=== PATIENT | female | born 1975 | race Caucasian/White ===

== ENCOUNTER 2016-08-31 21:47 | Observation (INO) | payer OTHER ==
--- NOTE | 2016-08-31 23:10 | PDOC ---
History of Present Illness - General Chief Complaint: Cold Symptoms Stated Complaint: FEVER, MIGRAINE, MALAISE Time Seen by Provider: 08/31/16 22:24 - History of Present Illness Initial Comments: This 41-year-old woman with a history of melanoma, s/p right lower extremity lymphadenectomy and chronic migraine headache presents with approximately one month history of headache, malaise for which she was seen in urgent care/ER settings. 2 days ago, she began to have chest discomfort, she was seen at [facility] ER. Laboratory evaluation and head CT/chest x-ray revealed no significant abnormality. She started on Levaquin for bronchitis. Patient states that today, she had onset of fever (MAXIMUM TEMPERATURE 103.9F) with persistent generalized headache/photophobia, body aches and malaise. The patient took her usual migraine medications at home without relief. Past History - Past Medical History Allergies/Adverse Reactions: Allergies Allergy/AdvReac Type Severity Reaction Status Date / Time oxycodone HCl [From Percocet] AdvReac Itching Verified 08/29/16 14:52 Home Medications: Ambulatory Orders Levofloxacin [Levaquin -] 500 mg PO DAILY #7 tablet 08/29/16 Ketorolac Tromethamine [Toradol] 10 mg PO PRN PRN 08/31/16 Naproxen Sodium [Aleve] 220 mg PO PRN PRN 08/31/16 Anemia: Yes Cancer: Yes (MELANOMA-RT INNER THIGH 04/14) Disorders: Yes (ENDOMETRIOSIS) Hypercholesterolemia: Yes Psychiatric Problems: Yes Suicide Attempt (Hx): No - Surgical History Abdominal Surgery: Yes - Immunization History Immunization Up to Date: Yes - Psycho/Social/Smoking Cessation Hx Anxiety: No Suicidal Ideation: No Smoking Status: Yes Smoking History: Current every day smoker Have you smoked in the past 12 months: Yes Number of Cigarettes Smoked Daily: 5 Information on smoking cessation initiated: Yes 'Breaking Loose' booklet given: 08/31/16 Hx Alcohol Use: No Drug/Substance Use Hx: No Substance Use Type: Alcohol Hx Substance Use Treatment: No Review of Systems - Review of Systems Able to Perform ROS?: Yes Comments:: 12 point review of systems is negative except for what is noted in the history of present illness *Physical Exam - Vital Signs Last Vital Signs Temp Pulse Resp BP Pulse Ox 100.5 F H 134 H 18 135/84 98 08/31/16 21:50 08/31/16 21:50 08/31/16 21:50 08/31/16 21:50 08/31/16 21:50 - Physical Exam Comments: Adult female, lying in dark room with a washcloth over her eyes, in mild distress secondary to headache Vital signs as noted HEAD: No contusions, abrasions or lacerations of the scalp; no facial ecchymosis , deformities or tenderness EYES: Pupils equal, round and reactive to light, extraocular movements intact, sclera anicteric, conjunctiva clear PHARYNX: No erythema, exudate or edema; mucous membranes moist NECK: Supple, nontender, no masses or bruits LUNGS: Clear to auscultation bilaterally CARDIAC: S1, S2 normal; no extra sounds, rubs or murmurs heard ABDOMEN:Normoactive bowel sounds, nontender, no masses, no organomegaly EXTREMITIES: Normal range of motion, no edema,deformity or tenderness NEUROLOGICAL: Cranial nerves II through XII grossly intact. Normal speech, normal gait.moving all 4 extremities equally, Sensation intact in all extremities. PSYCH: Normal mood, normal affect. SKIN: Warm, Dry, normal turgor, no rashes or lesions noted. ED Treatment Course - LABORATORY CBC & Chemistry Diagram: 09/01/16 00:44 09/01/16 00:44 Medical Decision Making - Medical Decision Making This 41-year-old woman with a history of migraine, presents with several week history of persistent headache with nausea, along with chest pain/cough for the last 2 days. Although she has been started on Levaquin(on third day of 10 day course), fever was reported at 103.9 at home. On arrival here, her oral temperatures 100.5. Exam shows supple neck without any evidence of meningismus; there are no focal neuro findings. Remainder of exam is normal. Laboratory evaluation sent including lactic acid. Patient given a liter of normal saline IV, Zofran 4mg IV and Toradol 30 mg IV given for analgesia Patient had some relief in her nausea but no relief in her headache after Toradol IV. Patient given sumatriptan 6 mg subcutaneously After sumatriptan SQ, patient states that the pain in the left side of her head is resolved but she still has pounding right-sided headache with nausea. 09/01/16 02:52 Case discussed with patient's PMD, Dr. Holt. He suggested the patient received solu Medrol 125 mg IV now but admission for intractable headache is warranted. He does not have admitting hospitalist currently. He requested that [facility] hospitalist service be contacted for observation admission. 09/01/16 03:26 Patient relates little relief after Solu-Medrol. Nausea persists. Patient will receive Reglan 10 mg IVPB. 09/01/16 03:45 [facility] hospitalist service contacted: At this point in time, the hospitalist service does not admit for Dr. Holt. Dr. Holt recontacted: He will admit patient. *DC/Admit/Observation/Transfer Diagnosis at time of Disposition: Intractable headache Qualifiers: Headache type: unspecified Headache chronicity pattern: chronic headache Qualified Code(s): R51 - Headache - Discharge Dispostion Condition at time of disposition: Stable Admit: Yes - Referrals Referrals: Jose J Holt MD [Primary Care Provider] -
[2016-08-31] MEDS ORDERED: ONDANSETRON 4 MG/2 ML VIAL IVPUSH ONE (23:19)
[2016-08-31] MEDS ORDERED: KETOROLAC TROMETHAMINE 30 MG/1 ML VIAL IVPUSH ONE (23:19)
[2016-08-31] MEDS ORDERED: SODIUM CHLORIDE 1,000 ML IV STA (23:19)
[2016-08-31] MEDS ORDERED: ONDANSETRON 4 MG/2 ML VIAL ONE (23:30)
[2016-08-31] MEDS ORDERED: KETOROLAC TROMETHAMINE 30 MG/1 ML VIAL ONE (23:30)
[2016-09-01] MEDS ORDERED: SUMATRIPTAN SUCCINATE 6 MG/0.5 ML VIAL SQ ONE (00:59)
[2016-09-01] MEDS ORDERED: SUMATRIPTAN SUCCINATE 6 MG/0.5 ML VIAL ONE (01:00)
[2016-09-01 01:37] LABS: BASOPHIL 0.5 % (0-2.0); EOSINOPHIL 0.3 % (0-4.5); MCH 28.3 pg (25.7-33.7); MCHC 32.6 g/dl (32.0-36.0); MEAN CELL VOLUME 86.7 fl (80-96); MEAN PLT VOLUME 10.3 fl (7.5-11.1); NEUTROPHILS 83.6 % (42.8-82.8); PLATELET COUNT 229 K/MM3 (134-434); RDW 13.4 % (11.6-15.6)
[2016-09-01 02:08] LABS: BILIRUBIN,TOTAL 0.9 mg/dL (0.2-1.0); CALCIUM 8.7 mg/dL (8.5-10.1); CREATININE 1.1 mg/dL (0.55-1.02)
[2016-09-01] MEDS ORDERED: methylPREDNISolone NA SUCC 125 MG/2 ML VIAL IVPB ONE (02:52)
[2016-09-01] MEDS ORDERED: methylPREDNISolone NA SUCC 125 MG/2 ML VIAL ONE (02:53)
[2016-09-01] MEDS ORDERED: METOCLOPRAMIDE HCL INJECTION 10 MG/2 ML VIAL IVPB ONE (03:25)
[2016-09-01] MEDS ORDERED: SODIUM CHLORIDE NASAL SPRAY 44 ML BOTTLE NS PRN (03:51)
[2016-09-01] MEDS ORDERED: FLUTICASONE PROP 0.05% 16 GM NASAL SPRAY NS ONE (03:51)
[2016-09-01] MEDS ORDERED: ACETAMINOPHEN 325 MG TABLET (FP) PO PRN (03:51)
[2016-09-01] MEDS ORDERED: ONDANSETRON *ODT* 4 MG TABLET SL PRN (03:51)
[2016-09-01 05:13] VITALS: BMI 32.6
[2016-09-01] MEDS: methylPREDNISolone NA SUCC 125 MG/2 ML VIAL IVPB SCH ×2 (10:00→21:52)
[2016-09-01] MEDS ORDERED: LEVOFLOXACIN 500 MG IVPB 100 ML IVPB SCH (10:00)
[2016-09-01] MEDS ORDERED: PT OWN MED DRAWER 7, Y5N ONE ×3 (10:35→23:37)
[2016-09-01] MEDS: KETOROLAC TROMETHAMINE 30 MG/1 ML VIAL IVPUSH PRN ×2 (11:00→20:54)
--- NOTE | 2016-09-01 11:58 | HP ---
Admitting History and Physical - Admission History of Present Illness: 41-year-old woman with a history of melanoma, s/p right lower extremity lymphadenectomy and chronic migraine headache presents with approximately one month history of headache, malaise for which she was seen in urgent care/ER settings. 2 days ago, she began to have chest discomfort, she was seen at [facility] ER. Laboratory evaluation and head CT/chest x-ray revealed no significant abnormality. She started on Levaquin for bronchitis. Patient states that yesterday, she had onset of fever (MAXIMUM TEMPERATURE 103.9F) with persistent generalized headache/photophobia, body aches and malaise. The patient took her usual migraine medications at home without relief. 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 No: CVA, Seizure Cardiovascular: No: HTN Pulmonary: No: Asthma, Cancer Gastrointestinal: No: Cancer ...LMP: 09/25/12 ...: No Heme/Onc: Yes: Other (melanoma) - Smoking History Smoking history: Current every day smoker Have you smoked in the past 12 months: Yes Aproximately how many cigarettes per day: 10 - Alcohol/Substance Use Hx Alcohol Use: No Home Medications - Allergies Allergies/Adverse Reactions: Allergies Allergy/AdvReac Type Severity Reaction Status Date / Time oxycodone HCl [From Percocet] AdvReac Itching Verified 08/29/16 14:52 - Home Medications Home Medications: Ambulatory Orders Levofloxacin [Levaquin -] 500 mg PO DAILY #7 tablet 08/29/16 Ketorolac Tromethamine [Toradol] 10 mg PO PRN PRN 08/31/16 Naproxen Sodium [Aleve] 220 mg PO PRN PRN 08/31/16 Review of Systems - Review of Systems Constitutional: reports: Fever, Weakness Eyes: reports: Blurred Vision, Photophobia HENT: reports: Nasal Congestion Cardiovascular: denies: Chest Pain Respiratory: reports: Cough. denies: SOB, SOB on Exertion Gastrointestinal: denies: Abdominal Pain Genitourinary: reports: No Symptoms Neurological: reports: Headache Physical Examination Vital Signs: Vital Signs Temperature 98.6 F 09/01/16 06:14 Pulse Rate 82 09/01/16 06:14 Respiratory Rate 17 09/01/16 09:00 Blood Pressure 90/61 09/01/16 06:14 O2 Sat by Pulse Oximetry (%) 94 L 09/01/16 09:00 Neck: Yes: Supple Cardiovascular: Yes: Regular Rate and Rhythm Respiratory: Yes: Regular, CTA Bilaterally Gastrointestinal: Yes: Normal Bowel Sounds, Soft Neurological: Yes: Alert, Oriented Imaging - Results Chest X-ray: Report Reviewed Cat Scan: Report Reviewed Problem List - Problems (1) Intractable headache Assessment/Plan: CONTINUE WITH MEDS NEURO--CONSIDER F/U MRI--LAST MRI 11/2015 Code(s): R51 - HEADACHE Qualifiers: Headache type: unspecified Headache chronicity pattern: chronic headache Qualified Code(s): R51 - Headache (2) Migraine Assessment/Plan: ABOVE Code(s): G43.909 - MIGRAINE, UNSP, NOT INTRACTABLE, WITHOUT STATUS MIGRAINOSUS Qualifiers: Migraine type: unspecified Status migrainosus presence: without status migrainosus Intractability: not intractable Qualified Code(s): G43.909 - Migraine, unspecified, not intractable, without status migrainosus (3) Fever Assessment/Plan: UA/UC ID CONSULT ON LEVAQUIN Code(s): R50.9 - FEVER, UNSPECIFIED (4) Leukocytosis Assessment/Plan: ABOVE F/U CBCD Code(s): D72.829 - ELEVATED WHITE BLOOD CELL COUNT, UNSPECIFIED (5) H/O Malignant melanoma Code(s): Z85.820 - PERSONAL HISTORY OF MALIGNANT MELANOMA OF SKIN
[2016-09-01 17:20] LABS: URINE APPEARANCE Cloudy; URINE BILIRUBIN Negative (NEGATIVE); URINE BLOOD Negative (NEGATIVE); URINE GLUCOSE (UA) 1+ (NEGATIVE); URINE KETONE Negative (NEGATIVE); URINE NITRITE Negative (NEGATIVE); URINE UROBILINOGEN 1.0 E.U/dl (0.2-1.0)
[2016-09-01 17:24] LABS: URINE COLOR YELLOW; URINE LEUK ESTERASE TRACE (NEGATIVE); URINE PROTEIN 1+ (NEGATIVE)
[2016-09-01 17:41] LABS: URINE AMORPHOUS SEDIMENT 3+; URINE RBC 0-3 /hpf (0-3)
--- NOTE | 2016-09-01 20:16 | CONSULT ---
Consult Consult Specialty:: NEUROLOGY Reason for Consultation:: severe headache, fever, nausea, vomiting - History of Present Illness History of Present Illness: 41-year-old woman with a history of melanoma, s/p right lower extremity lymphadenectomy and chronic migraine headache presents for two days severe headaches ( worse than her usual migraine), cough, fever, nausea, vomiting. Her mother and her daughter had some flu, viral infection. Laboratory evaluation and head CT/chest x-ray revealed no significant abnormality. She was started on Levaquin for bronchitis. Patient states that yesterday, she had onset of fever 103.9F with persistent generalized headache/photophobia, body aches and malaise. The patient took her usual migraine medications at home without relief. Since Levaquin was started in the hospital and after reglan and Imitrex her headaches improved. - History Source History Provided By: Patient, Medical Record Limitations to Obtaining History: No Limitations - Past Medical History COMMUNITY LIAISON: Yes: Migraine. No: CVA, Seizure Cardio/Vascular: No: HTN Pulmonary: No: Asthma, Cancer Gastrointestinal: No: Cancer ...LMP: 09/25/12 ...: No - Alcohol/Substance Use Hx Alcohol Use: No - Smoking History Smoking history: Current every day smoker Have you smoked in the past 12 months: Yes Aproximately how many cigarettes per day: 10 Home Medications - Allergies Allergies/Adverse Reactions: Allergies Allergy/AdvReac Type Severity Reaction Status Date / Time oxycodone HCl [From Percocet] AdvReac Itching Verified 08/29/16 14:52 - Home Medications Home Medications: Ambulatory Orders Levofloxacin [Levaquin -] 500 mg PO DAILY #7 tablet 08/29/16 Ketorolac Tromethamine [Toradol] 10 mg PO PRN PRN 08/31/16 Naproxen Sodium [Aleve] 220 mg PO PRN PRN 08/31/16 Review of Systems - Review of Systems Constitutional: reports: Chills, Diaphoresis, Fever, Lethargy, Malaise, Weakness Eyes: reports: No Symptoms HENT: reports: Nasal Congestion Neck: reports: No Symptoms Cardiovascular: reports: No Symptoms, Chest Pain Respiratory: reports: Cough, Orthopnea, SOB Gastrointestinal: reports: Nausea, Vomiting Genitourinary: reports: No Symptoms Breasts: reports: No Symptoms Reported Musculoskeletal: reports: No Symptoms Neurological: reports: Headache, Pre-Existing Deficit Endocrine: reports: No Symptoms Hematology/Lymphatic: reports: No Symptoms Psychiatric: reports: No Symptoms Physical Exam-Neuro Vital Signs: Vital Signs Temperature 98.6 F 09/01/16 14:08 Pulse Rate 78 09/01/16 14:08 Respiratory Rate 20 09/01/16 14:08 Blood Pressure 105/61 09/01/16 14:08 O2 Sat by Pulse Oximetry (%) 94 L 09/01/16 09:00 Constitutional: Yes: Mild Distress Neck: Yes: Supple, Trachea Midline Cardiovascular: Yes: Regular Rate and Rhythm, S1, S2 Respiratory: Yes: Regular, CTA Bilaterally Gastrointestinal: Yes: Normal Bowel Sounds, Soft Musculoskeletal: Yes: WNL Edema: No Psychiatric: Yes: WNL, Alert, Oriented - Neuro Exam Level Of Consciousness: Yes: Alert, Oriented to Person, Oriented to Place, Oriented to Time Eyes: Yes: PERRLA Speech: WNL Dominant Hand: Right Cranial Nerves II-XII Intact: Yes Gag: Present DTR's: 1+ Left Bicep, 1+ Right Bicep, 1+ Left Tricep, 1+ Right Tricep, 1+ Left Brachioradialis, 1+ Right Brachioradialis, 1+ Left Achilles, 1+ Right Achilles Babinski: Absent Response to light touch: Normal Response to pain prick: Normal Response to temperature: Normal Response to vibration: Normal Coordination: Normal: Finger to Nose, Heel to Lo Motor Strength: 5/5: Left Arm, Right Arm, Left Leg, Right Leg Gait: Deferred Imaging - Results Cat Scan: Report Reviewed, Image Reviewed Problem List - Problems (1) Intractable headache Code(s): R51 - HEADACHE Qualifiers: Headache type: unspecified Headache chronicity pattern: chronic headache Qualified Code(s): R51 - Headache (2) Migraine with status migrainosus Code(s): G43.901 - MIGRAINE, UNSP, NOT INTRACTABLE, WITH STATUS MIGRAINOSUS (3) Nausea & vomiting Code(s): R11.2 - NAUSEA WITH VOMITING, UNSPECIFIED Assessment/Plan 41-year-old woman with a history of melanoma, s/p right lower extremity lymphadenectomy and chronic migraine headache presents for two days severe headaches ( worse than her usual migraine), cough, fever, nausea, vomiting. Her mother and her daughter had some flu, viral infection. Laboratory evaluation and head CT/chest x-ray revealed no significant abnormality. She was started on Levaquin for bronchitis. Patient states that yesterday, she had onset of fever 103.9F with persistent generalized headache/photophobia, body aches and malaise. Her headache is 4/10 pulsating, + photo+ phono, +nausea. The patient took her usual migraine medications at home without relief. Since Levaquin was started in the hospital and after reglan and Imitrex her headaches improved. Impression: status migrainous with viral bronchitis. Normal neurological exam, nonfocal Plan: - treat bronchitis per medical team - consider MRI brain and MRI C spine to rule out ICP- these can be done as outpatient - follow up in the neurology clinica as outpatient - magnesium oxide 400mg. po. daily. Thank you for this consult.
[2016-09-01] MEDS: ONDANSETRON 4 MG/2 ML VIAL IVPB PRN (20:55)
[2016-09-01] MEDS: SUMAtriptan SUCCINATE 25 MG TABLET PO PRN (23:49)
--- NOTE | 2016-09-02 07:03 | PN ---
Progress Note, Physician Chief Complaint: ID Unusual story of chronic migraine headaches with worsening headaches over August different then her typical migraines. Seen 3 times by medical doctors and treated for ear infection Augmentin cephalexin and most recently levofloxacin. Says while on levofloxacin had fever 103 at home chills headache and photophobia. No stiff neck coryza rash HIV risk factors, hobbies. No outdoor exposure and no one else at home ill (mom and daughter). Unemployed and has dog as pet. Past medical history includes LE melanoma resected and followed at [facility]. Here given steroids - Current Medication List Current Medications: Active Medications Acetaminophen (Tylenol -) 650 mg PO Q6H PRN PRN Reason: FEVER OR PAIN Levofloxacin (Levaquin 500 Mg Premixed Ivpb -) 100 mls @ 100 mls/hr IVPB DAILY CHERIE Last Admin: 09/01/16 09:00 Dose: 100 mls/hr Ketorolac Tromethamine (Toradol Injection -) 30 mg IVPUSH Q6H PRN PRN Reason: PAIN Stop: 09/06/16 03:50 Last Admin: 09/01/16 20:54 Dose: 30 mg Methylprednisolone Sodium Succinate (Solu-Medrol -) 80 mg IVPB BID CHERIE Last Admin: 09/01/16 21:52 Dose: 80 mg Ondansetron HCl (Zofran Injection) 8 mg IVPB Q8H PRN PRN Reason: NAUSEA Last Admin: 09/01/16 20:55 Dose: 8 mg Ondansetron HCl (Zofran Odt -) 4 mg SL Q6H PRN PRN Reason: NAUSEA AND/OR VOMITING Sodium Chloride ([place] Nasal [place] -) 2 spray NS TID PRN PRN Reason: NASAL CONGESTION Sumatriptan Succinate (Imitrex -) 25 mg PO BID PRN PRN Reason: HEADACHE Last Admin: 09/01/16 23:49 Dose: 25 mg - Objective Vital Signs: Vital Signs Temperature 98.0 F 09/02/16 06:00 Pulse Rate 80 09/02/16 06:00 Respiratory Rate 18 09/02/16 06:00 Blood Pressure 110/76 09/02/16 06:00 O2 Sat by Pulse Oximetry (%) 94 L 09/02/16 06:36 Constitutional: Yes: Well Nourished, No Distress, Calm Eyes: Yes: WNL, Conjunctiva Clear, EOM Intact HENT: Yes: WNL, Atraumatic, Normocephalic. No: Other (Ears look normal) Neck: Yes: WNL, Supple, Trachea Midline. No: Decreased ROM Cardiovascular: Yes: S1, S2. No: Murmur Respiratory: Yes: WNL, Regular, CTA Bilaterally Gastrointestinal: Yes: WNL, Normal Bowel Sounds, Soft. No: Splenomegaly, Tenderness, Tenderness, Epigastrium Edema: No Neurological: Yes: WNL, Alert, Oriented, Cran Nerves II-XII Intact Problem List - Problems (1) Intractable headache Code(s): R51 - HEADACHE Qualifiers: Headache type: unspecified Headache chronicity pattern: chronic headache Qualified Code(s): R51 - Headache (2) Acute viral syndrome Code(s): B34.9 - VIRAL INFECTION, UNSPECIFIED Assessment/Plan Laboratory Tests 08/21/13 08/29/16 09/01/16 08:30 17:45 00:44 WBC Hgb Plt Count ESR BUN 12 Creatinine 1.1 H AST 10 L ALT 26 Alkaline Phosphatase 80 C-Reactive Protein Total Protein 7.0 Albumin 4.0 Total Beta HCG < 1.0 Serum , Qual Negative Urine RBC 09/01/16 09/01/16 09/01/16 00:44 08:00 16:40 WBC 12.0 H D Hgb 13.9 Plt Count 229 ESR BUN Creatinine AST ALT Alkaline Phosphatase C-Reactive Protein 3.3 H Total Protein Albumin Total Beta HCG Serum , Qual Urine RBC 0-3 09/01/16 Unknown WBC Hgb Plt Count ESR 40 H BUN Creatinine AST ALT Alkaline Phosphatase C-Reactive Protein Total Protein Albumin Total Beta HCG Serum , Qual Urine RBC Assessment Possible viral syndrome superimposed on chronic migraines. Given recent fever 103 I would not give her steroids. As its unclear what if any infection she may have and she has not responded to 3 courses of antibiotics giving her levoflox now should be stopped. Nothing in her geographic history suggests Lyme or HIV. Her ears look fine at this time. Plan Stop Levofloxacin Stop Steroids Observe fever with cultures accordingly. Brain imaging as per neurology Consideration of LP if fevers persist. Jay PATE
[2016-09-02 07:51] LABS: MCH 29.7 pg (25.7-33.7); MCHC 33.7 g/dl (32.0-36.0); MEAN PLT VOLUME 10.3 fl (7.5-11.1); NEUTROPHILS 89.6 % (42.8-82.8); PLATELET COUNT 218 K/MM3 (134-434); RDW 13.5 % (11.6-15.6); WHITE BLOOD COUNT 15.8 K/mm3 (4.0-10.0)
[2016-09-02 07:52] LABS: BASOPHIL 0.1 % (0-2.0)
[2016-09-02] MEDS ORDERED: PT OWN MED DRAWER 7, Y5N ONE (11:38)
--- NOTE | 2016-09-02 12:39 | PN ---
Progress Note, Physician History of Present Illness: still with headaches--better than yesterday d/w dr trejo--monitor off abx - Current Medication List Current Medications: Active Medications Acetaminophen (Tylenol -) 650 mg PO Q6H PRN PRN Reason: FEVER OR PAIN Acetaminophen/Codeine Phosphate (Tylenol # 3 -) 1 tab PO Q8H PRN PRN Reason: FEVER OR PAIN Ketorolac Tromethamine (Toradol Injection -) 30 mg IVPUSH Q6H PRN PRN Reason: PAIN Stop: 09/06/16 03:50 Last Admin: 09/01/16 20:54 Dose: 30 mg Ondansetron HCl (Zofran Injection) 8 mg IVPB Q8H PRN PRN Reason: NAUSEA Last Admin: 09/01/16 20:55 Dose: 8 mg Ondansetron HCl (Zofran Odt -) 4 mg SL Q6H PRN PRN Reason: NAUSEA AND/OR VOMITING Sodium Chloride ([place] Nasal [place] -) 2 spray NS TID PRN PRN Reason: NASAL CONGESTION Sumatriptan Succinate (Imitrex -) 25 mg PO BID PRN PRN Reason: HEADACHE Last Admin: 09/01/16 23:49 Dose: 25 mg - Objective Vital Signs: Vital Signs Temperature 98.0 F 09/02/16 06:00 Pulse Rate 80 09/02/16 06:00 Respiratory Rate 18 09/02/16 08:01 Blood Pressure 110/76 09/02/16 06:00 O2 Sat by Pulse Oximetry (%) 94 L 09/02/16 08:01 Cardiovascular: Yes: Regular Rate and Rhythm Respiratory: Yes: Regular, CTA Bilaterally Gastrointestinal: Yes: Normal Bowel Sounds, Soft. No: Tenderness Labs: CBC, BMP 09/02/16 07:00 Problem List - Problems (1) Intractable headache Assessment/Plan: CONTINUE WITH MEDS NEURO--CONSIDER F/U MRI--LAST MRI 11/2015 TYLENOL #3 Code(s): R51 - HEADACHE Qualifiers: Headache type: unspecified Headache chronicity pattern: chronic headache Qualified Code(s): R51 - Headache (2) Migraine Assessment/Plan: ABOVE Code(s): G43.909 - MIGRAINE, UNSP, NOT INTRACTABLE, WITHOUT STATUS MIGRAINOSUS Qualifiers: Migraine type: unspecified Status migrainosus presence: without status migrainosus Intractability: not intractable Qualified Code(s): G43.909 - Migraine, unspecified, not intractable, without status migrainosus (3) Fever Assessment/Plan: RESOLVED UA/UC ID CONSULT NOTED 0BSERVE OFF ABX OFF LEVAQUIN Code(s): R50.9 - FEVER, UNSPECIFIED (4) Leukocytosis Assessment/Plan: HIGHER TODAY --PROBABLY STEROIDS ABOVE F/U CBCD Code(s): D72.829 - ELEVATED WHITE BLOOD CELL COUNT, UNSPECIFIED (5) H/O Malignant melanoma Code(s): Z85.820 - PERSONAL HISTORY OF MALIGNANT MELANOMA OF SKIN
[2016-09-02] MEDS: SUMAtriptan SUCCINATE 25 MG TABLET PO PRN (12:54)
[2016-09-02] MEDS: CELECOXIB 200 MG CAPSULE PO SCH (13:18)
[2016-09-02] MEDS: ACETAMINOPHEN WITH CODEINE 300MG/30MG TABLET PO PRN ×2 (13:19→20:30)
[2016-09-02] MEDS: ONDANSETRON 4 MG/2 ML VIAL IVPB PRN (20:30)
[2016-09-03] MEDS: CELECOXIB 200 MG CAPSULE PO SCH ×2 (07:06→10:08)
[2016-09-03 07:07] LABS: BASOPHIL 0.2 % (0-2.0); EOSINOPHIL 0.1 % (0-4.5); MCH 30.1 pg (25.7-33.7); MCHC 34.2 g/dl (32.0-36.0); MEAN PLT VOLUME 10.4 fl (7.5-11.1); PLATELET COUNT 213 K/MM3 (134-434); RDW 13.3 % (11.6-15.6); WHITE BLOOD COUNT 10.7 K/mm3 (4.0-10.0)
[2016-09-03] MEDS ORDERED: ALBUTEROL SO4 2.5/IPRATROPIUM 0.5 INH SOL 3 ML VIAL.NEB. NEB PRN (09:05)
--- NOTE | 2016-09-03 09:08 | PN ---
Progress Note, Physician Chief Complaint: AWAKE ALERT STILL FEELING WEAK AND ILL POOR PO INTAKE NO BM - Current Medication List Current Medications: Active Medications Acetaminophen (Tylenol -) 650 mg PO Q6H PRN PRN Reason: FEVER OR PAIN Acetaminophen/Codeine Phosphate (Tylenol # 3 -) 1 tab PO Q8H PRN PRN Reason: FEVER OR PAIN Last Admin: 09/02/16 20:30 Dose: 1 tab Albuterol/Ipratropium (Duoneb -) 1 amp NEB Q6H PRN PRN Reason: SHORTNESS OF BREATH Celecoxib (Celebrex -) 200 mg PO DAILY CHERIE Last Admin: 09/03/16 07:06 Dose: Not Given Dextrose/Sodium Chloride (D5-Ns -) 1,000 mls @ 100 mls/hr IV ASDIR CHERIE Ketorolac Tromethamine (Toradol Injection -) 30 mg IVPUSH Q6H PRN PRN Reason: PAIN Stop: 09/06/16 03:50 Last Admin: 09/01/16 20:54 Dose: 30 mg Ondansetron HCl (Zofran Injection) 8 mg IVPB Q8H PRN PRN Reason: NAUSEA Last Admin: 09/02/16 20:30 Dose: 8 mg Ondansetron HCl (Zofran Odt -) 4 mg SL Q6H PRN PRN Reason: NAUSEA AND/OR VOMITING Sodium Chloride ([place] Nasal [place] -) 2 spray NS TID PRN PRN Reason: NASAL CONGESTION Sumatriptan Succinate (Imitrex -) 25 mg PO BID PRN PRN Reason: HEADACHE Last Admin: 09/02/16 12:54 Dose: 25 mg - Objective Vital Signs: Vital Signs Temperature 97.6 F 09/03/16 06:42 Pulse Rate 68 09/03/16 06:42 Respiratory Rate 18 09/03/16 06:42 Blood Pressure 98/70 09/03/16 06:42 O2 Sat by Pulse Oximetry (%) 98 09/03/16 06:42 Constitutional: Yes: Mild Distress Eyes: Yes: WNL HENT: Yes: WNL Neck: Yes: WNL Cardiovascular: Yes: WNL Respiratory: Yes: WNL Gastrointestinal: Yes: WNL Genitourinary: Yes: WNL Musculoskeletal: Yes: Muscle Weakness Extremities: Yes: WNL Edema: No Peripheral Pulses WNL: Yes Integumentary: Yes: WNL Wound/Incision: Yes: Clean/Dry Neurological: Yes: WNL ...Motor Strength: WNL Psychiatric: Yes: WNL Labs: CBC, BMP 09/03/16 06:00 Problem List - Problems (1) Acute viral syndrome Code(s): B34.9 - VIRAL INFECTION, UNSPECIFIED (2) Fever Code(s): R50.9 - FEVER, UNSPECIFIED (3) H/O Malignant melanoma Code(s): Z85.820 - PERSONAL HISTORY OF MALIGNANT MELANOMA OF SKIN (4) Intractable headache Code(s): R51 - HEADACHE Qualifiers: Headache type: unspecified Headache chronicity pattern: chronic headache Qualified Code(s): R51 - Headache (5) Leukocytosis Code(s): D72.829 - ELEVATED WHITE BLOOD CELL COUNT, UNSPECIFIED (6) Migraine with status migrainosus Code(s): G43.901 - MIGRAINE, UNSP, NOT INTRACTABLE, WITH STATUS MIGRAINOSUS (7) Nausea & vomiting Code(s): R11.2 - NAUSEA WITH VOMITING, UNSPECIFIED (8) Abdominal pain Code(s): R10.9 - UNSPECIFIED ABDOMINAL PAIN Assessment/Plan MRI BRAIN PENDING IVF POOR INTAKE NUTRITIONAL SUPPLEMENT BANNA BAG X 1 B12 IM ID AND NEURO FOLLOW UP HISTORY OF MELANOMA, R/O NEOPLASM
[2016-09-03] MEDS ORDERED: DEXTROSE 5%-NORMAL SALINE 1,000 ML IV SCH (09:15)
--- NOTE | 2016-09-03 09:24 | PN ---
Progress Note, Physician History of Present Illness: No c/o fever/ chills Headache No c/o photophobia/ neck stiffness No earache Off antibiotics - Current Medication List Current Medications: Active Medications Acetaminophen (Tylenol -) 650 mg PO Q6H PRN PRN Reason: FEVER OR PAIN Acetaminophen/Codeine Phosphate (Tylenol # 3 -) 1 tab PO Q8H PRN PRN Reason: FEVER OR PAIN Last Admin: 09/02/16 20:30 Dose: 1 tab Albuterol/Ipratropium (Duoneb -) 1 amp NEB Q6H PRN PRN Reason: SHORTNESS OF BREATH Celecoxib (Celebrex -) 200 mg PO DAILY CHERIE Last Admin: 09/03/16 07:06 Dose: Not Given Cyanocobalamin (Vitamin B12 Injection -) 1,000 mcg IM DAILY [facility] Folic Acid 1 mg/ Thiamine HCl 100 mg/ Multivitamins/Minerals 10 ml/ Sodium Chloride 1,000 mls @ 125 mls/hr IVPB ONCE ONE Stop: 09/03/16 17:07 Ketorolac Tromethamine (Toradol Injection -) 30 mg IVPUSH Q6H PRN PRN Reason: PAIN Stop: 09/06/16 03:50 Last Admin: 09/01/16 20:54 Dose: 30 mg Ondansetron HCl (Zofran Injection) 8 mg IVPB Q8H PRN PRN Reason: NAUSEA Last Admin: 09/02/16 20:30 Dose: 8 mg Ondansetron HCl (Zofran Odt -) 4 mg SL Q6H PRN PRN Reason: NAUSEA AND/OR VOMITING Sodium Chloride ([place] -) 2 spray NS TID PRN PRN Reason: NASAL CONGESTION Sumatriptan Succinate (Imitrex -) 25 mg PO BID PRN PRN Reason: HEADACHE Last Admin: 09/02/16 12:54 Dose: 25 mg - Objective Vital Signs: Vital Signs Temperature 97.6 F 09/03/16 06:42 Pulse Rate 68 09/03/16 06:42 Respiratory Rate 18 09/03/16 06:42 Blood Pressure 98/70 09/03/16 06:42 O2 Sat by Pulse Oximetry (%) 98 09/03/16 06:42 Constitutional: Yes: No Distress Eyes: Yes: Conjunctiva Clear Cardiovascular: Yes: Regular Rate and Rhythm, S1, S2 Respiratory: Yes: CTA Bilaterally Gastrointestinal: Yes: Normal Bowel Sounds, Soft. No: Tenderness Edema: No Labs: CBC, BMP 09/03/16 06:00 Assessment/Plan S/P low grade temp Has been afebrile Headache Observe off antibiotics For MRI of head
[2016-09-03] MEDS ORDERED: CYANOCOBALAMIN (VITAMIN B-12) 1000 MCG/1 ML VIAL IM SCH (10:00)
[2016-09-03] MEDS ORDERED: FOLIC ACID INJECTION - 1 MG, THIAMINE HCL 100 MG, MULTIVIT INJECTION ADULT 10 ML in SOD... IVPB ONE (10:00)
[2016-09-03 10:06] LABS: ERYTHROCYTE SEDIMENTATION RATE 35 mm/hr (0-20)
[2016-09-03] MEDS: ONDANSETRON 4 MG/2 ML VIAL IVPB PRN (10:13)
[2016-09-03] MEDS ORDERED: ALPRAZolam 0.25 MG TABLET PO PRN (11:03)
[2016-09-03] MEDS: ACETAMINOPHEN WITH CODEINE 300MG/30MG TABLET PO PRN (14:11)
[2016-09-03 14:22] VITALS: BP 109/64; PULSE 71; TEMP 97.8
--- NOTE | 2016-09-03 15:17 | DS ---
Physical Examination Vital Signs: Vital Signs Temperature 97.8 F 09/03/16 14:21 Pulse Rate 71 09/03/16 14:21 Respiratory Rate 19 09/03/16 14:21 Blood Pressure 109/64 09/03/16 14:21 O2 Sat by Pulse Oximetry (%) 99 09/03/16 14:21 Findings/Remarks: see progress note Labs: CBC, BMP 09/03/16 06:00 Discharge Summary Reason For Visit: INTRACTABLE HEADACHE Current Active Problems Acute viral syndrome (Acute) Fever (Acute) H/O Malignant melanoma (Acute) Intractable headache (Acute) Leukocytosis (Acute) Migraine with status migrainosus (Acute) Nausea & vomiting (Acute) Procedures: Principal: mri brain Hospital Course: ivf,steroids, abx , id and neuro workup Condition: Improved - Instructions Diet, Activity, Other Instructions: reg Referrals: Jose J Dietrich MD [Primary Care Provider] - Disposition: HOME - Home Medications Comprehensive Discharge Medication List: Ambulatory Orders Levofloxacin [Levaquin -] 500 mg PO DAILY #7 tablet 08/29/16 Ketorolac Tromethamine [Toradol] 10 mg PO PRN PRN 08/31/16 Naproxen Sodium [Aleve] 220 mg PO PRN PRN 08/31/16 Acetaminophen [Tylenol .Regular Strength -] 650 mg PO Q6H PRN #0 tablet Sodium Chloride Nasal [place] [[place] -] 2 spray NS TID PRN #0 bottle 09/03/[address] dietrich in 1-2 weeks
[2016-09-03] MEDS: KETOROLAC TROMETHAMINE 30 MG/1 ML VIAL IVPUSH PRN (17:20)
== END 2016-09-03 17:50 | disposition home or self-care (01) ==
LOC: FER 21:47 → FM/S 09-01 03:49
PROVIDERS: ADMIT Family Medicine; ATTEND Family Medicine
DX: G43.901 Migraine, unspecified, not intractable, with status migrainosus (principal); R50.9 Fever, unspecified; R11.2 Nausea with vomiting, unspecified; B34.9 Viral infection, unspecified; J20.8 Acute bronchitis due to other specified organisms; Z72.0 Tobacco use; Z85.820 Personal history of malignant melanoma of skin
CPT/HCPCS: 36415; 70551-TC; 80053; 81003; 81015; 83605; 85025; 85651; 86140; 86593; 87804; 99282-25; G0378

== ENCOUNTER 2017-05-28 20:22 | Emergency (ER) | payer OTHER ==
[2017-05-28 20:27] VITALS: BP 123/77; PULSE 93; TEMP 98; BMI 31.8
--- NOTE | 2017-05-28 20:51 | PDOC ---
History of Present Illness - General History Source: Patient Exam Limitations: No Limitations <Brian Quiros - Last Filed: 05/28/17 20:55> - General History Source: Patient Exam Limitations: No Limitations <Iván Moser I - Last Filed: 05/28/17 22:39> - General Chief Complaint: Chest Pain Stated Complaint: CHEST PAIN,SOB Time Seen by Provider: 05/28/17 20:25 - History of Present Illness Initial Comments: 05/28/17 20:55 The patient is a 42 year old female, who presents to the emergency department with chest pain and shortness of breath. She reports that she woke up with the pain. She describes her chest pain as initially sharp but now a pressure, ranging from mild to moderate, with radiation to her left arm. She notes that taking a deep breath exacerbates her pain. She denies any exacerbation of her shortness of breath on exertion. She reports that the pain has increased prompting her to come to the ED. She also reports nausea associated with her chief complaint. The patient denies headache and dizziness. Denies fever, chills, nausea, vomit, diarrhea and constipation. Denies dysuria, frequency, urgency and hematuria. PAST MEDICAL HISTORY: Anemia, Hyperlipidemia, endometriosis, Melanoma right inner thigh (removed ) PAST SURGICAL HISTORY: Total Hysterectomy, laparoscopy FAMILY HISTORY: no pertinent history SOCIAL HISTORY: Pt lives with family and is employed. Smokes pack daily for the past 20 years. MEDICATIONS: reviewed ALLERGIES: As per nursing notes General: No fevers or chills, no weakness, no weight loss HEENT: No change in vision. No sore throat,. No ear pain CardioVascular: (+) Chest pain and shortness of breath Respiratory:No cough, or wheezing. Gastrointestinal: (+) Nausea. no vomiting, diarrhea or constipation, No rectal bleeding Genitourinary: No dysuria, hematuria, or frequency Musculoskeletal: No joint or muscle pain or swelling Neurologic: No headache, vertigo, dizziness or loss of consciousness Psychiatric: nor depression Skin: No rashes or easy bruising Endocrine: no increased thirst or abnormal weight change Allergic: no skin or latex allergy All other systems reviewed and normal General: Well-nourished well-developed individual, no acute distress HEENT: Throat: Normal, tonsils normal, no erythema or exudate Neck: Supple, no meningeal signs, no lymphadenopathy Eyes::Pupils equal reactive and round, extraocular motion intact Chest: Nontender to palpation Cardiac: S1-S2 normal, regular rate and rhythm, no murmurs rubs or gallops Respiratory: Lungs clear to auscultation bilateral Abdomen: Soft, nondistended, normal bowel sounds, nontender to palpation diffusely Extremities: Warm, dry, no cyanosis, clubbing, or edema Skin: No rashes Neuro: Alert and oriented x3, nonfocal exam, grossly intact, normal gait Psych: Normal mood and affect (Brian Quiros) 05/28/17 22:36 A portion of this note was documented by scribe services under my direction. I have reviewed the details of the note, within reason, and agree with the documentation. The case summary and management plan written by me. Assessment and plan: This is a 42-year-old female who comes in complaining of one day of continuous pleuritic chest pressure. Pressures associated with some shortness of breath. Patient's EKG was completely normal. Patient's heart score was 1. Patient has a remote history of melanoma with some chronic right lower extremity lymphedema however her d-dimer was negative. Patient was given Toradol here in the emergency room for the pain Patient's chest x-ray showed no acute pathology It is uncertain as to the etiology of patient's chest discomfort however most likely it is skeletal muscle or pleurisy. As her heart score is 1 and her d- dimer was negative. Patient was told to take anti-inflammatories and follow up with her primary care doctor. (Iván Moser I) Past History <Brian Quiros - Last Filed: 05/28/17 20:55> - Past Medical History Anemia: Yes Cancer: Yes (MELANOMA-RT INNER THIGH 04/14) Disorders: Yes (ENDOMETRIOSIS) Hypercholesterolemia: Yes Psychiatric Problems: Yes (DEPRESSION) Other medical history: LYMPHEDEMA RT LEG - Surgical History Abdominal Surgery: Yes (LAPAROSCOPY) - Immunization History Immunization Up to Date: Yes - Suicide/Smoking/Psychosocial Hx Smoking Status: Yes Smoking History: Current every day smoker Have you smoked in the past 12 months: Yes Number of Cigarettes Smoked Daily: 7 Information on smoking cessation initiated: Yes 'Breaking Loose' booklet given: 05/28/17 Hx Alcohol Use: No Drug/Substance Use Hx: No Substance Use Type: None Hx Substance Use Treatment: No <Iván Moser I - Last Filed: 05/28/17 22:39> - Past Medical History Allergies/Adverse Reactions: Allergies Allergy/AdvReac Type Severity Reaction Status Date / Time oxycodone HCl [From Percocet] AdvReac Itching Verified 05/28/17 20:23 Home Medications: Ambulatory Orders Bupropion HCl [Wellbutrin Xl] 300 mg PO DAILY 05/28/17 - Vital Signs Last Vital Signs Temp Pulse Resp BP Pulse Ox 98 F 93 H 16 123/77 96 05/28/17 20:25 05/28/17 20:25 05/28/17 20:25 05/28/17 20:25 05/28/17 20:25 Heart Score/ECG Review - History History: Slightly suspicious - Electrocardiogram EKG: Normal - Age Age: </= 45 - Risk Factors Risk Factors Heart Score: Yes Smoking History Based on the list above the patient has:: 1-2 risk factors - Troponin Troponin: </= normal limit - Score Heart Score - Total: 1 <Iván Moser I - Last Filed: 05/28/17 22:39> ED Treatment Course - LABORATORY CBC & Chemistry Diagram: 05/28/17 21:01 05/28/17 21:01 <Iván Moser I - Last Filed: 05/28/17 22:39> - ADDITIONAL ORDERS Additional order review: Laboratory Results 05/28/17 05/28/17 05/28/17 21:16 21:01 21:00 D-Dimer < 200 Sodium 137 Potassium 3.9 Chloride 107 Carbon Dioxide 26 Anion Gap 4 L BUN 14 Creatinine 1.0 Creat Clearance w eGFR > 60 Random Glucose 118 H D Calcium 8.8 Total Bilirubin 0.3 D AST 15 ALT 20 Alkaline Phosphatase 78 Creatine Kinase 113 Troponin I < 0.03 L Total Protein 6.3 L Albumin 3.8 05/28/17 21:01 RBC 4.46 MCV 86.5 MCHC 35.0 RDW 12.6 MPV 10.3 Neutrophils % 59.3 Lymphocytes % 30.1 Monocytes % 6.7 Eosinophils % 1.6 Basophils % 2.3 H D - RADIOLOGY Radiology Studies Ordered: Category Date Time Status CHEST X-RAY PORTABLE* [RAD] Stat Radiology 05/28/17 20:55 Completed *DC/Admit/Observation/Transfer <Brian Quiros - Last Filed: 05/28/17 20:55> <Iván Moser I - Last Filed: 05/28/17 22:39> Diagnosis at time of Disposition: Pleurodynia - Discharge Dispostion Disposition: HOME Condition at time of disposition: Stable - Referrals - Patient Instructions Printed Discharge Instructions: Smoking Cessation Additional Instructions: For the pain take Aleve one or 2 tablets twice a day with food don't take on an empty stomach. Return to the emergency department immediately with ANY new, persistent or worsening symptoms. Continue any medications as previously prescribed by your physician. You should follow up with your primary doctor as soon as possible regarding today's emergency department visit. . Please make sure your doctor reviews the results of your emergency evaluation. Thank you for coming to the Emergency Department today for your care. It was a pleasure to see you today. Please note that your evaluation is INCOMPLETE until you follow-up with your doctor. - Post Discharge Activity - Attestations Scribe Attestion: 05/28/17 20:55 Documentation prepared by Brian Quiros, acting as medical nurse for Iván Moser MD (Brian Quiros)
[2017-05-28 21:21] LABS: BASOPHIL 2.3 % (0-2.0); EOSINOPHIL 1.6 % (0-4.5); MCH 30.2 pg (25.7-33.7); MEAN CELL VOLUME 86.5 fl (80-96); MEAN PLT VOLUME 10.3 fl (7.5-11.1); NEUTROPHILS 59.3 % (42.8-82.8); PLATELET COUNT 231 K/MM3 (134-434); RDW 12.6 % (11.6-15.6); WHITE BLOOD COUNT 8.5 K/mm3 (4.0-10.8)
[2017-05-28 21:25] LABS: CPK 113 IU/L (26-192)
[2017-05-28 21:25] LABS: ALBUMIN 3.8 g/dl (3.5-5.0); ALK PHOS 78 U/L (32-92); ANION GAP 4 (8-16); BILIRUBIN,TOTAL 0.3 mg/dl (0.2-1.0); CALCIUM 8.8 mg/dl (8.4-10.2); CO2 26 mmol/L (22-28); GLUCOSE,RANDOM 118 mg/dl (74-106); SGOT/AST 15 U/L (10-42); SGPT/ALT 20 U/L (10-40); TOT PROT 6.3 g/dl (6.4-8.3)
[2017-05-28 21:34] LABS: TROPONIN I (DFP) < 0.03 ng/ml (0.03-0.50)
[2017-05-28] MEDS ORDERED: KETOROLAC TROMETHAMINE 30 MG/1 ML VIAL IVPUSH ONE (22:34)
[2017-05-28] MEDS ORDERED: KETOROLAC TROMETHAMINE 30 MG/1 ML VIAL ONE (22:40)
--- NOTE | 2017-05-29 13:48 | EKG ---
Test Reason : Blood Pressure : / mmHG Vent. Rate : 090 BPM Atrial Rate : 090 BPM P-R Int : 140 ms QRS Dur : 094 ms QT Int : 366 ms P-R-T Axes : 045 036 042 degrees QTc Int : 447 ms NORMAL SINUS RHYTHM NORMAL ECG WHEN COMPARED WITH ECG OF 29-AUG-2016 17:59, RSR' PATTERN IN V1 IS NO LONGER PRESENT Confirmed by ENZO PATE, ANNETTE ([id number]) on 05/29/2017 1:48:50 PM Referred By: Christine Cortes Confirmed By:ANNETTE GIRALDO MD
== END 2017-05-28 22:58 | disposition home or self-care (01) ==
LOC: FER 20:22
PROC: 3E0333Z Introduction of Anti-inflammatory into Peripheral Vein, Percutaneous Approach (ICD-10-PCS; principal; 2017-05-28)
DX: R07.81 Pleurodynia (principal)
CPT/HCPCS: 36415; 71010-TC; 80053; 84484; 85025; 85379; 93005; 96374; 99283-25

== ENCOUNTER 2019-04-01 15:11 | Emergency (ER) | payer OTHER ==
[2019-04-01 15:35] VITALS: TEMP 98.4; BMI 31.4
[2019-04-01] MEDS ORDERED: HYDROmorphone HCL CARPU-JECT 2 MG/1 ML DISP.SYRIN IVPUSH ONE (16:47)
[2019-04-01] MEDS ORDERED: METHOCARBAMOL 500 MG TABLET PO ONE (16:48)
[2019-04-01] MEDS ORDERED: HYDROmorphone HCL CARPU-JECT 2 MG/1 ML DISP.SYRIN IM ONE (16:51)
--- NOTE | 2019-04-01 16:53 | PDOC ---
History of Present Illness - General Chief Complaint: Pain Stated Complaint: RIGHT PAIN TO THIGH Time Seen by Provider: 04/01/19 15:21 History Source: Patient (Patient walked in complaining of pain in the inner right thigh, for more than 5 years adter having a malignant melanoma removes from the lower part of right inner thigh, chemo and radiation thereafter. ), Care Provider ([facility] done [place] [facility], recently switched to Dilaudid po which the patient states did not achieve full pain control) Exam Limitations: No Limitations - History of Present Illness Timing/Duration: unsure, getting worse Severity: moderate Past History - Travel Traveled outside of the country in the last 30 days: No Close contact w/someone who was outside of country & ill: No - Past Medical History Allergies/Adverse Reactions: Allergies Allergy/AdvReac Type Severity Reaction Status Date / Time oxycodone HCl [From Percocet] AdvReac Intermediate Itching Verified 04/01/19 15: 13 Home Medications: Ambulatory Orders Bupropion HCl [Wellbutrin Xl] 300 mg PO DAILY 05/28/17 HYDROmorphone [Dilaudid -] 2 mg PO Q4H 04/01/19 Hydrocodone/Acetaminophen [Vicodin Hp 10-300 mg Tablet] 1 each PO QID PRN Ondansetron [Ondansetron Odt] 8 mg PO TID #20 tab.rapdis 04/01/19 Ranitidine HCl [Zantac] 300 mg PO PRN 04/01/19 Tizanidine HCl 2 mg PO BID 04/01/19 Anemia: Yes Cancer: Yes (MELANOMA-RT INNER THIGH 04/14) COPD: No Disorders: Yes (ENDOMETRIOSIS) Hypercholesterolemia: Yes Psychiatric Problems: Yes (DEPRESSION) - Surgical History Abdominal Surgery: Yes (LAPAROSCOPY) - Immunization History Immunization Up to Date: Yes - Suicide/Smoking/Psychosocial Hx Smoking Status: Yes Smoking History: Current every day smoker Have you smoked in the past 12 months: Yes Number of Cigarettes Smoked Daily: 10 Information on smoking cessation initiated: Yes 'Breaking Loose' booklet given: 05/28/17 Hx Alcohol Use: No Drug/Substance Use Hx: No Substance Use Type: None Hx Substance Use Treatment: No Review of Systems - Review of Systems Able to Perform ROS?: Yes Is the patient limited Romansh proficient: Yes Constitutional: No: Symptoms Reported, See HPI, Chills, Diaphoresis, Fever, Loss of Appetite, Malaise, Night Sweats, Weakness, Weight Stable, Unintentional Wgt. Loss, Unexplained wgt Loss, Other HEENTM: No: Symptoms Reported, See HPI, Eye Pain, Blurred Vision, Tearing, Recent change in vision, Double Vision, Cataracts, Ear Pain, Ocular Prothesis, Ear Discharge, Nose Pain, Nose Congestion, Tinnitus, Nose Bleeding, Hearing Loss , Throat Pain, Throat Swelling, Mouth Pain, Dental Problems, Difficulty Swallowing, Mouth Swelling, Other Respiratory: No: Symptoms reported, See HPI, Cough, Orthopnea, Shortness of Breath, SOB with Exertion, SOB at Rest, Stridor, Wheezing, Productive cough, Hemoptysis, Other Cardiac (ROS): No: Symptoms Reported, See HPI, Chest Pain, Edema, Irregular Heart Rate, Lightheadedness, Palpitations, Syncope, Chest Tightness, Other ABD/GI: No: Symptoms Reported, See HPI, Abdominal Distended, Abd. Pain w/ defecation, Blood Streaked Bowels, Constipated, Diarrhea, Difficulty Swallowing , Nausea, Poor Appetite, Poor Fluid Intake, Rectal Bleeding, Vomiting, Indigestion, Abdominal cramping, Tarry Stools, Other Neurological: Yes: Symptoms reported, See HPI All Other Systems: Reviewed and Negative *Physical Exam - Vital Signs Last Vital Signs Temp Pulse Resp BP Pulse Ox 98.4 F 92 H 16 119/83 96 04/01/19 15:13 04/01/19 15:13 04/01/19 15:13 04/01/19 15:13 04/01/19 15:13 - Physical Exam General Appearance: Yes: Nourished, Appropriately Dressed, Mild Distress, Moderate Distress HEENT: positive: [place], Normal ENT Inspection, Normal Voice Neck: positive: Supple Respiratory/Chest: positive: Lungs Clear Cardiovascular: positive: Regular Rhythm Gastrointestinal/Abdominal: positive: Normal Bowel Sounds Extremity: positive: Normal Capillary Refill, Other (right medial aspect of the right thigh post op scar) Integumentary: positive: Normal Color, Dry, Warm Neurologic: positive: thermoscrew operator II-XII NML intact, Fully Oriented, Alert, Normal Mood/ Affect *DC/Admit/Observation/Transfer Diagnosis at time of Disposition: Chronic pain due to injury - Discharge Dispostion Disposition: HOME Condition at time of disposition: Improved Decision to Admit order: No - Prescriptions Prescriptions: Ondansetron [Ondansetron Odt] 8 mg PO TID #20 tab.rapdis - Referrals Referrals: Ashley Broussard MD [Primary Care Provider] - - Patient Instructions Additional Instructions: Follow up with your pain management doctor at [facility] call the doctor in the morning - Post Discharge Activity
[2019-04-01] MEDS ORDERED: HYDROmorphone HCl 2 MG/ML VIAL ONE (16:55)
[2019-04-01] MEDS ORDERED: METHOCARBAMOL 500 MG TABLET ONE (16:55)
[2019-04-01] MEDS ORDERED: ONDANSETRON 4 MG TABLET PO ONE (17:53)
[2019-04-01] MEDS ORDERED: ONDANSETRON *ODT* 4 MG TABLET ONE (17:53)
[2019-04-01 18:26] VITALS: BP 128/78; PULSE 95
== END 2019-04-01 18:57 | disposition home or self-care (01) ==
LOC: FER 15:11
PROC: 3E023NZ Introduction of Analgesics, Hypnotics, Sedatives into Muscle, Percutaneous Approach (ICD-10-PCS; principal; 2019-04-01)
DX: G89.29 Other chronic pain (principal); F17.210 Nicotine dependence, cigarettes, uncomplicated; F32.9 Major depressive disorder, single episode, unspecified; Z85.820 Personal history of malignant melanoma of skin
CPT/HCPCS: 96372; 99282-25

== ENCOUNTER 2020-08-04 12:23 | Emergency (ER) | payer OTHER | END 2020-08-04 14:56 | disposition home or self-care (01) | LOC: JVIRT 12:23 | DX: Z03.818 Encounter for observation for suspected exposure to other biological agents ruled out (principal) | CPT/HCPCS: C9803; G2012-GT; U0003 ==

== ENCOUNTER 2023-03-14 16:42 | Emergency (ER) | payer OTHER ==
[2023-03-14] MEDS ORDERED: SODIUM CHLORIDE 0.9% 500 ML INFUS.BAG IV ONE ×2 (16:45→17:50)
[2023-03-14 16:58] VITALS: BP 116/79; PULSE 85; RESP 18; TEMP 98.8; BMI 35.5
[2023-03-14 17:24] LABS: HEMATOCRIT 41.9 % (32.4-45.2); HEMOGLOBIN 14.6 G/dL (10.7-15.3); MCH 30.5 pg (25.7-33.7); MCHC 34.7 g/dl (32.0-36.0); MEAN CELL VOLUME 87.9 fl (80-96); MEAN PLT VOLUME 9.9 fl (7.5-11.1); PLATELET COUNT 233.1 10^3/uL (134-434); RBC 4.77 10^6/uL (3.60-5.2); RDW 13.8 % (11.6-15.6); WHITE BLOOD COUNT 6.9 10^3/uL (4.0-10.8)
[2023-03-14 17:34] LABS: ALBUMIN 4.5 g/dl (3.4-5.0); BILIRUBIN,TOTAL 0.9 mg/dl (0.2-1); BLOOD UREA NITROGEN 10.2 mg/dl (7-18); CALCIUM 9.5 mg/dl (8.5-10.1); CREATININE 1.2 mg/dl (0.6-1.3); POTASSIUM 3.9 mmol/L (3.5-5.1); SGOT/AST 15.3 U/L (15-37); SGPT/ALT 31.4 U/L (7-52); TOT PROT 6.8 g/dl (6.4-8.2)
[2023-03-14] MEDS ORDERED: METOCLOPRAMIDE HCL INJECTION 10 MG/2 ML VIAL IVPUSH ONE (17:45)
[2023-03-14] MEDS ORDERED: MAG HYDROX/AL HYDROX/SIMETH 30 ML UNIT-DOSE CUP PO ONE (17:45)
[2023-03-14] MEDS ORDERED: FAMOTIDINE 20 MG/50 ML IVPB 20 MG/50 ML MG IVPB ONE ×2 (17:45→17:47)
[2023-03-14] MEDS ORDERED: METOCLOPRAMIDE HCL INJECTION 10 MG/2 ML VIAL ONE (17:47)
[2023-03-14] MEDS ORDERED: MAG HYDROX/AL HYDROX/SIMETH 30 ML UNIT-DOSE CUP ONE (17:56)
[2023-03-14 18:38] LABS: PLATELET ESTIMATE ADEQUATE
== END 2023-03-14 18:44 | disposition home or self-care (01) ==
LOC: FER 16:42
PROC: 3E033GC Introduction of Other Therapeutic Substance into Peripheral Vein, Percutaneous Approach (ICD-10-PCS; principal; 2023-03-14)
PROC: 3E033GC Introduction of Other Therapeutic Substance into Peripheral Vein, Percutaneous Approach (ICD-10-PCS; 2023-03-14)
DX: R11.0 Nausea (principal); E16.2 Hypoglycemia, unspecified; R63.8 Other symptoms and signs concerning food and fluid intake; K59.00 Constipation, unspecified
CPT/HCPCS: 36415; 80053; 82962; 84484; 85027; 93005; 99284-25

== ENCOUNTER 2024-04-03 19:51 | Emergency (ER) | payer OTHER ==
[2024-04-03 20:55] LABS: HEMATOCRIT 43.8 % (32.4-45.2); HEMOGLOBIN 14.4 G/dL (10.7-15.3); MCHC 32.9 g/dl (32.0-36.0); MEAN CELL VOLUME 88.2 fl (80-96); MEAN PLT VOLUME 9.7 fl (7.5-11.1); PLATELET COUNT 251.3 10^3/uL (134-434); RBC 4.97 10^6/uL (3.60-5.2); WHITE BLOOD COUNT 9.1 10^3/uL (4.0-10.8)
[2024-04-03 20:57] VITALS: BP 107/78; PULSE 95; RESP 18; TEMP 98.2; BMI 35.6
[2024-04-03] MEDS ORDERED: MECLIZINE HCL 25 MG TABLET (FP) ONE (20:59)
[2024-04-03] MEDS: MECLIZINE HCL 25 MG TABLET (FP) PO ONE (21:03)
[2024-04-03 21:07] LABS: PLATELET ESTIMATE ADEQUATE
[2024-04-03 21:07] LABS: ALBUMIN 4.6 g/dl (3.4-5.0); BILIRUBIN,TOTAL 0.8 mg/dl (0.2-1); CALCIUM 9.7 mg/dl (8.5-10.1); CREATININE 1.2 mg/dl (0.6-1.3)
== END 2024-04-03 23:15 | disposition home or self-care (01) ==
LOC: FER 19:51
DX: R42 Dizziness and giddiness (principal); R11.0 Nausea; Z20.822 Contact with and (suspected) exposure to COVID-19
CPT/HCPCS: 0241U-QW; 36415; 70450-TC; 80053; 81003; 81015; 84484; 85027; 93005; 99285-25